=== PATIENT | male | born 2000 | race Caucasian/White ===

== ENCOUNTER 2018-01-31 04:27 | Emergency (ER) | payer OTHER ==
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
[2018-01-31 06:02] VITALS: BP 131/66
== END 2018-01-31 06:02 | disposition home or self-care (01) ==
PROC: 0HQ1XZZ Repair Face Skin, External Approach (ICD-10-PCS; principal; 2018-01-31)
DX: S01.81XA Laceration without foreign body of other part of head, initial encounter (principal); F10.929 Alcohol use, unspecified with intoxication, unspecified; F17.200 Nicotine dependence, unspecified, uncomplicated; V18.0XXA Pedal cycle driver injured in noncollision transport accident in nontraffic accident, initial encounter; Y92.9 Unspecified place or not applicable; Y93.55 Activity, bike riding; Y99.9 Unspecified external cause status